=== PATIENT | female | born 1990 | race Two or more races ===

== ENCOUNTER → 2020-12-13 | Emergency (ER) | payer OTHER ==
[~2020-12-13] VITALS: Ht 157.5 cm; Wt 67.1 kg
[~2020-12-13] MED LIST: PRENA1 CHEW TA1.4 MG
== END | disposition left against medical advice (07) ==
LOC: ER 14:37
DX: O26.891 Other specified pregnancy related conditions, first trimester (principal); R10.2 Pelvic and perineal pain; Z34.01 Encounter for supervision of normal first pregnancy, first trimester

== ENCOUNTER 2021-05-26 14:30 | Inpatient (IN) | payer OTHER ==
[~2021-05-26] VITALS: Ht 160 cm; Wt 4.1 kg
[2021-06-12] MEDS ORDERED: KETO10TA2 PO (10:10)
== END 2021-06-12 12:26 | disposition home or self-care (01) | DRG 788 ==
LOC: LDR 06-09 13:11 → O/R 06-09 13:11 → LDR 06-10 08:23 → SURG-SUITE 06-10 14:41 → LDR 06-19 14:30
PROVIDERS: ADMIT Obstetrics & Gynecology; ATTEND Obstetrics & Gynecology
PROC: 4A1HXFZ Monitoring of Products of Conception, Cardiac Rhythm, External Approach (ICD-10-PCS; 2021-06-09)
PROC: 3E033VJ Introduction of Other Hormone into Peripheral Vein, Percutaneous Approach (ICD-10-PCS; 2021-06-09)
PROC: 10D00Z1 Extraction of Products of Conception, Low, Open Approach (ICD-10-PCS; principal; 2021-06-09 22:00)
DX: O13.4 Gestational [pregnancy-induced] hypertension without significant proteinuria, complicating childbirth (principal); O62.1 Secondary uterine inertia; O99.824 Streptococcus B carrier state complicating childbirth; Z3A.38 38 weeks gestation of pregnancy; Z37.0 Single live birth; Z20.822 Contact with and (suspected) exposure to COVID-19

== ENCOUNTER 2021-06-03 10:07 | Outpatient (CLI) | payer OTHER | END 2021-06-03 11:40 | disposition home or self-care (01) | LOC: NST 10:07 | PROVIDERS: ATTEND Obstetrics & Gynecology | DX: O09.73 Supervision of high risk pregnancy due to social problems, third trimester (principal) ==